=== PATIENT | male | born 1985 | race Caucasian/White ===

== ENCOUNTER 2016-11-20 16:32 | Emergency (ER) | payer OTHER ==
[~2016-11-20] VITALS: Ht 180.3 cm; Wt 100.0 kg
[~2016-11-20 16:32] MED LIST: AMOXICILLIN/PO500 MG PO; CORTISPORIN OTI10 ML AD; LORTAB 10-325 M1 TAB PO
[2016-11-20] MEDS ORDERED: AMOXICILLIN500 MG PO (18:11)
[2016-11-20 18:30] VITALS: BP 162/74
== END 2016-11-20 18:41 | disposition home or self-care (01) | DRG 605 ==
LOC: ED 16:32
PROC: 0HQEXZZ Repair Left Lower Arm Skin, External Approach (ICD-10-PCS; principal; 2016-11-20)
DX: S51.812A Laceration without foreign body of left forearm, initial encounter (principal); W26.0XXA Contact with knife, initial encounter; Y92.009 Unspecified place in unspecified non-institutional (private) residence as the place of occurrence of the external cause

== ENCOUNTER 2023-08-01 07:33 | Emergency (ER) | payer MEDICAID ==
[~2023-08-01] VITALS: Ht 180.3 cm; Wt 99.0 kg
[~2023-08-01 07:33] MED LIST changes: +AMOXICILLIN500 MG PO
[2023-08-01 07:37] VITALS: BP 151/99
[2023-08-01 07:45] VITALS: BP 143/100
[2023-08-01] MEDS ORDERED: AMOXICILLIN500 M2 PO (07:53)
[2023-08-01] MEDS ORDERED: MOTRIN800 MG PO (07:54)
[2023-08-01 08:00] VITALS: BP 161/108
[2023-08-01 08:08] VITALS: BP 161/108
== END 2023-08-01 08:14 | disposition home or self-care (01) ==
LOC: ED 07:33
DX: K05.20 Aggressive periodontitis, unspecified (principal); L03.211 Cellulitis of face; K02.9 Dental caries, unspecified; F17.200 Nicotine dependence, unspecified, uncomplicated